=== PATIENT | female | born 1990 | race Caucasian/White ===

== ENCOUNTER 2021-05-25 11:13 | Emergency (ER) | payer OTHER ==
[2021-05-25] MEDS ORDERED: Sodium Chloride 0.9% 10 ML Syringe FLUSH PRN (11:46)
[2021-05-25] MEDS ORDERED: HYDROmorphone 1 MG/ML Syringe IVPUSH ONE (11:48)
[2021-05-25] MEDS ORDERED: Sodium Chloride 0.9% 1,000 ML IV ONE (11:48)
[2021-05-25 12:35] LABS: CHLORIDE,CL 104 mmol/L (98-107); SODIUM,NA 138 mmol/L (136-145)
[2021-05-25 12:36] LABS: ANION GAP 9.8 mmol/L (5-15)
== END 2021-05-25 14:00 | disposition home or self-care (01) ==
LOC: VM.ED 11:13
DX: M54.50 Low back pain, unspecified (principal); Z88.1 Allergy status to other antibiotic agents; Z91.040 Latex allergy status
CPT/HCPCS: 36415; 74176; 80053; 81001; 81025; 83605; 83735; 84100; 85025; 86140; 96374; 99283; 99284-25; J1170; J7030